=== PATIENT | male | born 1970 | race Caucasian/White ===

== ENCOUNTER 2019-05-18 15:33 | Outpatient (CLI) | payer OTHER | END 2019-05-18 15:34 | disposition critical access hospital (66) | LOC: EMS 15:33 | PROVIDERS: ATTEND Surgery | DX: R05 Cough (principal); R06.02 Shortness of breath; R50.9 Fever, unspecified | CPT/HCPCS: A0425; A0427 ==

== ENCOUNTER 2019-05-18 15:56 | Observation (INO) | payer OTHER ==
[2019-05-18] MEDS ORDERED: predniSONE 20 MG TABLET PO STA (17:19)
[2019-05-18] MEDS ORDERED: IPRATROPIUM/ALBUTEROL 3 ML NEB INH STA (17:19)
[2019-05-18] MEDS ORDERED: IBUPROFEN 800 MG TABLET PO STA (17:19)
--- NOTE | 2019-05-18 17:24 | ED Physician Documentation ---
History of Present Illness - Stated complaint Stated Complaint: FEVER - Chief complaint Chief Complaint: Fever - History obtained from History obtained from: Patient - History of Present Illness Timing: How many days ago (3) Pain level max: 5 Pain level now: 4 - Additonal information Additional information: 48-year-old male with a history of COPD states that he has had fevers and body aches for the past 3 to 4 days. Nothing makes it better or worse. Has been taking Motrin at home. Recently returned from a cruise where people were infected with influenza. Review of Systems Ten Systems: 10 systems reviewed and negative Constitutional: reports: Fever Nose: reports: Rhinorrhea / runny nose Cardiac: denies: Chest pain / pressure Respiratory: reports: Dyspnea, Cough, Wheezing GI: denies: Nausea, Vomiting, Diarrhea Skin: denies: Rash PD PAST MEDICAL HISTORY - Past Medical History Respiratory: Emphysema - Past Surgical History Past Surgical History: Yes - Present Medications Home Medications: Ambulatory Orders Medication Instructions Recorded Confirmed Albuterol 2.5 mg INH Q4H PRN 03/18/16 03/18/16 - Allergies Allergies/Adverse Reactions: Allergies Allergy/AdvReac Type Severity Reaction Status Date / Time No Known Drug Allergies Allergy Verified 05/18/19 16:03 - Social History Does the pt smoke?: Yes Smoking Status: Current every day smoker Does the pt drink ETOH?: Yes Does the pt have substance abuse?: No - Immunizations Immunizations are current?: Yes - POLST Patient has POLST: No PD ED PE NORMAL - Vitals Vital signs reviewed: Yes - General General: Alert and oriented X 3, No acute distress, Well developed/nourished - HEENT HEENT: PERRL, Ears normal, Moist mucous membranes, Pharynx benign - Neck Neck: Supple, no meningeal sign - Cardiac Cardiac: RRR - Respiratory Respiratory: No respiratory distress, Other (Diffuse wheezing bilaterally) - Abdomen Abdomen: Soft, Non tender, Non distended - Derm Derm: Warm and dry, No rash - Extremities Extremities: No edema - Neuro Neuro: Alert and oriented X 3 - Psych Psych: Normal mood, Normal affect Results - Vitals Vitals: Vital Signs - 24 hr 05/18/19 05/18/19 05/18/19 16:04 17:30 17:39 Temperature 38 C H Heart Rate 100 96 94 Respiratory 19 19 12 Rate Blood Pressure 124/90 H 115/85 H O2 Saturation 97 94 05/18/19 17:40 Temperature Heart Rate Respiratory Rate Blood Pressure O2 Saturation 94 Oxygen O2 Source Room air - Labs Labs: Laboratory Tests 05/18/19 05/18/19 05/18/19 16:30 18:20 18:20 WBC 6.3 RBC 4.73 Hgb 14.1 Hct 42.2 MCV 89.2 MCH 29.8 MCHC 33.4 RDW 13.2 Plt Count 161 MPV 10.7 Neut # (Auto) 3.9 Lymph # (Auto) 1.3 L [place] # (Auto) 0.9 Eos # (Auto) 0.0 Baso # (Auto) 0.0 Absolute Nucleated RBC 0.00 Nucleated RBC % 0.0 Sodium Potassium Chloride Carbon Dioxide Anion Gap BUN Creatinine Estimated GFR (MDRD) Glucose Lactic Acid 0.8 Calcium Total Bilirubin AST ALT Alkaline Phosphatase Total Protein Albumin Globulin Albumin/Globulin Ratio Lipase Influenza A (Rapid) POSITIVE H Influenza B (Rapid) Negative 05/18/19 18:20 WBC RBC Hgb Hct MCV MCH MCHC RDW Plt Count MPV Neut # (Auto) Lymph # (Auto) [place] # (Auto) Eos # (Auto) Baso # (Auto) Absolute Nucleated RBC Nucleated RBC % Sodium 136 Potassium 3.7 Chloride 101 Carbon Dioxide 23 Anion Gap 12.0 BUN 20 Creatinine 0.8 Estimated GFR (MDRD) 104 Glucose 94 Lactic Acid Calcium 8.5 Total Bilirubin 0.8 AST 56 H ALT 117 H Alkaline Phosphatase 38 L Total Protein 6.9 Albumin 4.2 Globulin 2.7 Albumin/Globulin Ratio 1.6 Lipase 32 Influenza A (Rapid) Influenza B (Rapid) - Rads (name of study) Chest x-ray Radiology: Prelim report reviewed, EMP read contemporaneously, See rad report (Bilateral patchy infiltrates) PD MEDICAL DECISION MAKING - ED course Complexity details: reviewed results, re-evaluated patient, considered dif ferential, d/w patient ED course: Patient appears to have influenza A complicated by pneumonia. This appears to be worsening his COPD, causing hypoxia. Given breathing treatments, steroids, antibiotics. He is out of the window for Tamiflu. He remains hypoxic. We will admit the patient for further care. Discussed the case with Dr. Cleary, hospitalist who accepts This document was made in part using voice recognition software. While efforts are made to proofread this document, sound alike and grammatical errors may occur. Departure - Departure Disposition: ED Place in Observation Clinical Impression: Influenza A, COPD exacerbation, Hypoxia Pneumonia Qualifiers: Pneumonia type: due to unspecified organism Laterality: left Lung location: lower lobe of lung Qualified Code(s): J18.9 - Pneumonia, unspecified organism Condition: Stable Discharge Date/Time: 05/18/19 19:18
--- NOTE | 2019-05-18 17:52 | XRAY Report ---
Reason: cough, fever Procedure Date: 05/18/2019 Accession Number: [id number] / [id number] Procedure: XR - Chest 1 View X-Ray CPT Code: 86283 Final Report FULL RESULT: EXAM: CHEST RADIOGRAPHY EXAM DATE: 05/18/2019 05:39 PM. CLINICAL HISTORY: Cough, fever. Cough for 3 days. COMPARISON: None. TECHNIQUE: 1 view. FINDINGS: Lungs/Pleura: Patchy infiltrate left lung base. Focal bronchiectasis right lung base. Decreased lung volume. Mediastinum: Within exam limitations, the cardiomediastinal contour is normal. Other: None. IMPRESSION: Patchy infiltrate and bronchiectasis left lung base. Possible aspiration pneumonia. RADIA
[2019-05-18] MEDS ORDERED: cefTRIAXone 1 GM VIAL IVP STA (18:00)
[2019-05-18] MEDS ORDERED: AZITHROMYCIN INJ 500 MG in SODIUM CHLORIDE 0.9% 250 ML IV STA (18:00)
[2019-05-18] MEDS ORDERED: SODIUM CHLORIDE 0.9% 1,000 ML IV ONE (18:00)
[2019-05-18] MEDS ORDERED: SODIUM CHLORIDE FLUSH 0.9% 10 ML SYRINGE IVP PRN (18:40)
[2019-05-18] MEDS ORDERED: ACETAMINOPHEN 325 MG TABLET PO PRN (18:40)
[2019-05-18] MEDS ORDERED: ONDANSETRON ODT 4 MG TABLET TL PRN (18:40)
[2019-05-18] MEDS ORDERED: ONDANSETRON 4 MG/2 ML VIAL IVP PRN (18:40)
[2019-05-18] MEDS ORDERED: oxyCODONE 5 MG TABLET PO PRN (18:40)
[2019-05-18] MEDS ORDERED: ALBUTEROL NEB 2.5 MG/3 ML INH PRN (18:42)
[2019-05-18 18:45] LABS: BASOPHILS % (AUTO) 0.3 %; EOSINOPHILS % (AUTO) 0.2 %; HGB - HEMOGLOBIN 14.1 g/dL (14.0-18.0); LYMPHOCYTES # (AUTO) 1.3 10^3/uL (1.5-3.5); LYMPHOCYTES % (AUTO) 21.2 %; MEAN CORPUSCULAR HEMOGLOBIN 29.8 pg (27.0-31.0); MEAN CORPUSCULAR HGB CONC 33.4 g/dL (32.0-36.0); MEAN CORPUSCULAR VOLUME 89.2 fL (80.0-94.0); MEAN PLATELET VOLUME 10.7 fL (7.4-11.4); MONOCYTES # (AUTO) 0.9 10^3/uL (0.0-1.0); MONOCYTES % (AUTO) 14.8 %; NEUTROPHILS # (AUTO) 3.9 10^3/uL (1.5-6.6); NEUTROPHILS % (AUTO) 62.5 %; PLT - PLATELET COUNT 161 10^3/uL (130-450); RED BLOOD COUNT 4.73 10^6/uL (4.70-6.10); RED CELL DISTRIBUTION WIDTH 13.2 % (12.0-15.0); WHITE BLOOD COUNT 6.3 x10^3/uL (4.8-10.8)
[2019-05-18 18:55] LABS: ALBUMIN 4.2 g/dL (3.2-5.5); ALBUMIN/GLOBULIN RATIO 1.6 (1.0-2.2); BILIRUBIN,TOTAL 0.8 mg/dL (0.2-1.0); CALCIUM 8.5 mg/dL (8.5-10.3); CREATININE 0.8 mg/dL (0.6-1.2); TOTAL PROTEIN 6.9 g/dL (6.7-8.2)
--- NOTE | 2019-05-18 20:11 | HISTORY & PHYSICAL EXAMINATION ---
Chief Complaint - Chief Complaint Chief Complaint: Fever History of Present Illness - Admitted From Admitted From:: Home - History Obtained From Records Reviewed: Yes History obtained from: Patient, ER Physician, EMR - History of Present Illness HPI Comment/Other: This is a 48-year-old male with a past medical history significant for COPD who presents today complaining of fever and malaise for the past 3 to 4 days. He states he was on a cruise in the [facility] which e returned home this morning. He reports the people were ill with influenza A on the cruise. He states he has felt short of breath and developed chest pain today that is reproducible. It is achy in nature and located over the central chest and is nonradiating. He has had an associated productive cough. He reports fevers, chills, malaise, body aches. He reports no rash, nausea, vomiting, abdominal pain. He does have COPD but is not on oxygen. He no longer smokes. He does use an albuterol inhaler as needed but does not use it very frequently. He reports his also has similar symptoms. He did have the influenza vaccine this year. He states that he was seen at urgent care earlier today after he arrived to [facility] at 1 PM. He states while at urgent care, he felt very lightheaded and weak and so he was referred to the emergency department. He did not pass out. In the emergency department, he is found to be febrile a temperature of 38 C. He was tachycardic with a heart rate of 100. His blood pressure was 124/90. He was not tachypneic. He was reportedly hypoxic requiring a nonrebreather and then he was placed on nasal cannula. His oxygen saturations were reportedly in the low 90s while on nasal cannula. A chest x-ray was performed which was concerning for possible pneumonia. His influenza was positive for influenza A. He did not have a white count and rest of his labs are unremarkable. Given these findings, medicine was consulted for admission History - Past Medical History Respiratory: reports: Emphysema MRSA Hx?: No - Past Surgical History General: reports: Other (Umbilical hernia.) /[employer] SURG RN: reports: Other (Vasectomy) - Family & Social History Family History Comment/Other: He reports no family history to his knowledge. Living arrangement: At home Living Situation: With spouse/s.o. Social History Notes: He has lived on [facility] for 22 years. Previous lives in [place]. He is prior the [employer]. He lives at home with his family. He does not drink alcohol and denies drug use. He no longer smokes but did smoke a pack a day for about 30 years. - Substance History Use: Uses substance without health or social issues: NONE - POLST Patient has POLST: No Meds/Allgy - Home Medications Home Medications: Ambulatory Orders Medication Instructions Recorded Confirmed Albuterol 2.5 mg INH Q4H PRN 03/18/16 03/18/16 - Allergies Allergies/Adverse Reactions: Allergies Allergy/AdvReac Type Severity Reaction Status Date / Time No Known Drug Allergies Allergy Verified 05/18/19 16:03 Review of Systems - Constitutional Constitutional: reports: Fatigue, Fever, Chills, Malaise, Weakness. denies: Poor appetite - Ears, Nose & Throat Ears, Nose & Throat: reports: Nasal congestion, Sore throat - Cardiovascular Cariovascular: reports: Chest pain, Lightheadedness, Exertional dyspnea, Decr. e xercise tolerance. denies: Edema - Respiratory Respiratory: reports: Cough, Sputum production, SOB at rest, SOB with exertion. denies: Hemoptysis - Gastrointestinal Gastrointestinal: denies: Abdominal pain, Bloody stools, Nausea, Vomiting - Musculoskeletal Musculoskeletal: reports: Muscle aches - Integumentary Integumentary: denies: Rash - Neurological Neurological: reports: General weakness. denies: Focal weakness - All Other Systems All Other Systems: reports: Reviewed and negative Prior Level of Functionality: He is independent with his ADLs. Exam - Vital Signs Reviewed Vital Signs: Yes Vital Signs: Vital Signs x48h Temp Pulse Pulse Resp BP BP Pulse Ox 05/18/19 19:33 95 11 L 112/80 93 05/18/19 19:00 92 21 109/75 91 L 05/18/19 17:40 94 05/18/19 17:39 94 12 05/18/19 17:30 96 19 115/85 H 94 05/18/19 16:04 38 C H 100 19 124/90 H 97 - Physical Exam General Appearance: positive: Alert, Mild distress Eyes Bilateral: positive: Normal inspection, Conjunctivae nml ENT: positive: ENT inspection nml Neck: positive: Nml inspection Respiratory: positive: Chest non-tender, No respiratory distress, Other ( Diminished breath sounds bilaterally.). negative: Wheezes, Rales, Rhonchi Cardiovascular: positive: No murmur, Tachycardia. negative: Bradycardia, Systolic murmur, Diastolic murmur Abdomen: positive: Non-tender, No distention. negative: Tenderness, Guarding, Rebound Skin: positive: No rash, Warm, Dry Extremities: positive: Full ROM, No pedal edema Neurologic/Psychiatric: positive: Oriented x3, Motor nml. negative: Disoriented to person, Disoriented to place, Disoriented to time Conclusion/Plan - Problem List (1) Influenza A Conclusion/Plan: Symptoms and presentation are consistent with influenza and this was confirmed with the rapid influenza testing. He does have influenza A. Chest x-ray is concerning for possible pneumonia. Fortunately he is not hypoxic. We will treat him with Tamiflu for 5 days. He also is on antibiotics for the pneumonia. Zofran as needed for antiemetics. Continue with IV hydration. Tessalon and Robitussin for cough. Diet as tolerated. (2) Pneumonia Conclusion/Plan: He does have influenza and his checks x-ray is concerning for possible pneumonia. He does not have a white count nor is he hypoxic. Suspect his fever tachycardia related to the flu rather than pneumonia at the moment. We will start him on ceftriaxone and azithromycin. If he stable overnight, will discharge on oral antibiotics to complete 5 days of treatment. Qualifiers: Pneumonia type: due to unspecified organism Laterality: left Lung location: lower lobe of lung Qualified Code(s): J18.9 - Pneumonia, unspecified organism (3) COPD (chronic obstructive pulmonary disease) Conclusion/Plan: Does not appear to be in exacerbation at the moment. His breath sounds are diminished without any wheezing. He saturating mid 90s on room air. We will continue with albuterol as needed. - Lab Results Lab results reviewed: Yes Fish Bones: 05/18/19 18:20 05/18/19 18:20 - Diagnostic Imaging Results Diagnostic Imaging Results: positive: Final report reviewed Core Measures - Anticipated LOS I expect patient to be DC'd or transferred within 96 hours.: Yes - Issues Hospital Issues and Management Plan: 48-year-old male with history of COPD who is admitted for influenza and p neumonia. He was initially hypoxic but is now on room air. We will observe overnight and treat him with antibiotics and Tamiflu. - DVT/VTE - Prophylaxis VTE/DVT Device ordered at admit?: Yes VTE/DVT Prophylaxis med ordered at admit?: No Not Ordered - Medical Reason: Not indicated
[2019-05-18] MEDS ORDERED: BENZONATATE 100 MG CAPSULE PO PRN (20:17)
[2019-05-18] MEDS: SODIUM CHLORIDE 0.9% 1,000 ML IV SCH (20:55)
[2019-05-18] MEDS: OSELTAMIVIR 75 MG CAPSULE PO SCH (20:55)
[2019-05-18] MEDS: guaiFENesin 100 MG/5 ML UDC PO PRN (20:55)
[2019-05-18] MEDS: IPRATROPIUM/ALBUTEROL 3 ML NEB INH SCH (21:10)
[2019-05-19] MEDS: SODIUM CHLORIDE FLUSH 0.9% 10 ML SYRINGE IVP SCH ×2 (03:26→09:16)
[2019-05-19] MEDS ORDERED: BENZOCAINE/MENTHOL LOZENGE MM PRN (03:47)
[2019-05-19] MEDS: guaiFENesin 100 MG/5 ML UDC PO PRN (04:06)
[2019-05-19 05:55] LABS: BASOPHILS % (AUTO) 0.2 %; HGB - HEMOGLOBIN 13.4 g/dL (14.0-18.0); LYMPHOCYTES # (AUTO) 0.9 10^3/uL (1.5-3.5); LYMPHOCYTES % (AUTO) 18.5 %; MEAN CORPUSCULAR HEMOGLOBIN 29.6 pg (27.0-31.0); MEAN CORPUSCULAR HGB CONC 32.9 g/dL (32.0-36.0); MEAN CORPUSCULAR VOLUME 89.8 fL (80.0-94.0); MEAN PLATELET VOLUME 10.3 fL (7.4-11.4); MONOCYTES # (AUTO) 0.5 10^3/uL (0.0-1.0); MONOCYTES % (AUTO) 11.6 %; NEUTROPHILS # (AUTO) 3.2 10^3/uL (1.5-6.6); NEUTROPHILS % (AUTO) 69.1 %; PLT - PLATELET COUNT 153 10^3/uL (130-450); RED BLOOD COUNT 4.53 10^6/uL (4.70-6.10); RED CELL DISTRIBUTION WIDTH 13.2 % (12.0-15.0); WHITE BLOOD COUNT 4.7 x10^3/uL (4.8-10.8)
[2019-05-19 06:02] LABS: CALCIUM 8.1 mg/dL (8.5-10.3); CREATININE 0.8 mg/dL (0.6-1.2)
[2019-05-19] MEDS: SODIUM CHLORIDE 0.9% 1,000 ML IV SCH (06:33)
[2019-05-19] MEDS: IPRATROPIUM/ALBUTEROL 3 ML NEB INH SCH ×2 (07:50→11:45)
[2019-05-19] MEDS ORDERED: SACCHAROMYCES BOULARDII 250 MG CAPSULE PO SCH (08:00)
[2019-05-19] MEDS ORDERED: cefTRIAXone 1 GM in SODIUM CHLORIDE 0.9% MINIBAG 100 ML IV SCH (09:00)
[2019-05-19] MEDS ORDERED: AZITHROMYCIN INJ 500 MG in SODIUM CHLORIDE 0.9% 250 ML IV SCH (09:00)
[2019-05-19] MEDS ORDERED: cefTRIAXone 2 GM in SODIUM CHLORIDE 0.9% MINIBAG 100 ML IV SCH (09:00)
[2019-05-19] MEDS ORDERED: guaiFENesin 600 MG TABLET PO SCH (09:00)
[2019-05-19] MEDS: OSELTAMIVIR 75 MG CAPSULE PO SCH (09:17)
[2019-05-19] MEDS ORDERED: BUDESONIDE 0.5 MG/2 ML NEB INH SCH (10:15)
--- NOTE | 2019-05-19 12:39 | Discharge Plan ---
Discharge Plan Problem Reviewed?: Yes Disposition: Home, Self Care Condition: Stable Prescriptions: Albuterol Sulfate [Proair Hfa Inhaler] 1 - 2 puffs INH Q4H PRN #1 inhaler PRN Reason: Shortness Of Air/Wheezing Cephalexin [Keflex] 250 mg PO QID #24 capsule guaiFENesin [Mucinex] 600 mg PO BID PRN #10 tablet PRN Reason: Cough Oseltamivir [Tamiflu] 75 mg PO BID #8 capsule Saccharomyces Boulardii [Florastor] 250 mg PO DAILY #6 capsule Diet: Regular Activity Restrictions: Activity as Tolerated Shower Restrictions: No (fall precaution) Instruction Topics: Oseltamivir capsules, Cephalexin tablets or capsules, Albuterol inhalation aerosol, Flu Health Concerns: Flu, and pneumonia Plan of Treatment: pt was found to have Flu, Tamiflu is prescribed for you to finish the treatment course. Antibiotics Keflex is prescribed for your pneumonia. Care Goals: stabilization and improvement of your medical conditions Assessment: discussed with you about the care plan, you understood. Additional Instructions or Follow Up instructions: you may followup your PCP in one to two weeks. Should your symptoms return or worsen, you may present ER or call 911 for help No Smoking: If you smoke, Please STOP! Call for help.
[2019-05-19 13:32] LABS: ALBUMIN 3.7 g/dL (3.2-5.5); ALBUMIN/GLOBULIN RATIO 1.3 (1.0-2.2); BILIRUBIN,TOTAL 0.4 mg/dL (0.2-1.0); CREATININE 0.9 mg/dL (0.6-1.2); TOTAL PROTEIN 6.5 g/dL (6.7-8.2)
--- NOTE | 2019-05-19 14:22 | DISCHARGE SUMMARY ---
Discharge Summary Admit Date: 05/18/19 Discharge Date: 05/19/19 Discharging Provider: Subhash Robles Condition at Discharge: Stable Discharge Disposition: 01 Home, Self Care Discharge Facility Name: home - DIAGNOSES Admission Diagnoses: (1) Influenza A (2) Pneumonia (3) COPD (chronic obstructive pulmonary disease) Discharge Diagnoses with Status of Each Condition: (1) Influenza A Improved. pt report he feel much better. pt has no more fever or chill. he ate 100% his diet. Blood culture is negative for bacteremia. pt has 96% sats on room air. pt is prescribed Tamiflu to finish the treatment course. (2) Pneumonia Improved. pt report he feel much better. pt has 96% sats on room air. pt has no more fever or chill. he ate 100% his diet. Blood culture is negative for bacteremia. pt is prescribed antibiotics Keflex to finish the treatment course (3) COPD (chronic obstructive pulmonary disease) stable. pt has no meds in home for his COPD. pt is prescribed Proair PRN - HPI History of Present Illness: This is a 48-year-old male with a past medical history significant for COPD who presents today complaining of fever and malaise for the past 3 to 4 days. He states he was on a cruise in the [facility] which hhe returned home this morning. He reports the people were ill with influenza A on the cruise. He states he has felt short of breath and developed chest pain today that is reproducible. It is achy in nature and located over the central chest and is nonradiating. He has had an associated productive cough. He reports fevers, chills, malaise, bod y aches. He reports no rash, nausea, vomiting, abdominal pain. He does have COPD but is not on oxygen. He no longer smokes. He does use an albuterol inhaler as needed but does not use it very frequently. He reports his also has similar symptoms. He did have the influenza vaccine this year. He states that he was seen at urgent care earlier today after he arrived to [facility] at 1 PM. He states while at urgent care, he felt very lightheaded and weak and so he was referred to the emergency department. He did not pass out. In the emergency department, he is found to be febrile a temperature of 38 C. He was tachycardic with a heart rate of 100. His blood pressure was 124/90. He was not tachypneic. He was reportedly hypoxic requiring a nonrebreather and then he was placed on nasal cannula. His oxygen saturations were reportedly in the low 90s while on nasal cannula. A chest x-ray was performed which was concerning for possible pneumonia. His influenza was positive for influenza A. He did not have a white count and rest of his labs are unremarkable. Given these findings, medicine was consulted for admission - HOSPITAL COURSE Hospital Course: pt was admitted for lower degree fever, cough, and once hypoxia. pt was found to have influenza A and possible pneumonia in CXR. pt was treated with Tamiflu and antibiotics. after treatment, he feel much better, he has 96% sat on room air, he has no more fever, or chill, blood culture is negative for bacteremia. pt is prescribed antibiotics and Tamiful for d/c. The detail hospital course is as the following. (1) Influenza A Improved. pt report he feel much better. pt has no more fever or chill. he ate 100% his diet. Blood culture is negative for bacteremia. pt has 96% sats on room air. pt is prescribed Tamiflu to finish the treatment course. (2) Pneumonia Improved. pt report he feel much better. pt has 96% sats on room air. pt has no more fever or chill. he ate 100% his diet. Blood culture is negative for bact eremia. pt is prescribed antibiotics Keflex to finish the treatment course (3) COPD (chronic obstructive pulmonary disease) stable. pt has no meds in home for his COPD. pt is prescribed Proair PRN - ALLERGIES Allergies/Adverse Reactions: Allergies Allergy/AdvReac Type Severity Reaction Status Date / Time No Known Drug Allergies Allergy Verified 05/18/19 16:03 - MEDICATIONS Home Medications: Ambulatory Orders Medication Instructions Recorded Confirmed Albuterol Sulfate [Proair Hfa 1 - 2 puffs INH Q4H PRN #1 inhaler 05/19/19 Inhaler] Cephalexin [Keflex] 250 mg PO QID #24 capsule 05/19/19 Oseltamivir [Tamiflu] 75 mg PO BID #8 capsule 05/19/19 Saccharomyces Boulardii [Florastor] 250 mg PO DAILY #6 capsule 05/19/19 guaiFENesin [Mucinex] 600 mg PO BID PRN #10 tablet 05/19/19 - PHYSICAL EXAM AT DISCHARGE General Appearance: positive: No acute distress, Alert. negative: Lethargic Eyes Bilateral: positive: Normal inspection, PERRL, EOMI, No lid inflammation ENT: positive: ENT inspection nml, Pharynx nml, No signs of dehydration. negative: Purulent nasal drainage Neck: positive: Nml inspection, Thyroid nml, No JVD, Trachea midline. negative: Thyromegaly, Lymphadenopathy (R), Stiff neck, Tracheal deviation Respiratory: positive: Chest non-tender, No respiratory distress, Breath sounds nml. negative: Wheezes, Rales, Rhonchi Cardiovascular: positive: Regular rate & rhythm, No murmur, No gallop. negative: Irregularly irregular, Extrasystoles, Tachycardia, Bradycardia, JVD pr esent, Systolic murmur, Diastolic murmur Peripheral Pulses: positive: 2+ Abdomen: positive: Non-tender, No organomegaly, Nml bowel sounds, No distention. negative: Tenderness, Guarding, Rebound Back: positive: Nml inspection. negative: CVA tenderness (R), CVA tenderness (L) Skin: positive: Color nml, No rash, Warm, Dry. negative: Cyanosis, Diaphoresis, Pallor Extremities: positive: Non-tender, Full ROM, Nml appearance. negative: Calf tenderness, Simon's sign/cords Neurologic/Psychiatric: positive: Oriented x3, Motor nml, Sensation nml, Mood /affect nml. negative: Weakness, Sensory loss, Facial droop, Slurred/abnml speech, Depressed mood/affect - LABS Result Diagrams: 05/19/19 05:40 05/19/19 13:00 - FOLLOW UP Follow Up: pt was found to have Flu, Tamiflu is prescribed for you to finish the treatment course. Antibiotics Keflex is prescribed for your pneumonia. you may followup your PCP in one to two weeks. Should your symptoms return or worsen, you may present ER or call 911 for help - TIME SPENT Time Spent in Discharge (Minutes): 35
[2019-05-19] MEDS ORDERED: POTASSIUM CHLORIDE 20 MEQ TABLET PO ONE (15:00)
[2019-05-19 15:51] VITALS: BP 118/73
== END 2019-05-19 16:00 | disposition home or self-care (01) ==
LOC: EDUNIT# → ED 15:56 → INTOOBSV 18:40 → MS2 18:40
PROVIDERS: ADMIT Internal Medicine; ATTEND Nurse Practitioner Gerontology
DX: J10.00 Influenza due to other identified influenza virus with unspecified type of pneumonia (principal); J43.9 Emphysema, unspecified; R09.02 Hypoxemia; Z79.899 Other long term (current) drug therapy; Z87.891 Personal history of nicotine dependence
CPT/HCPCS: 36415; 71045; 80048; 80053; 83605; 83690; 85025; 87040; 87275; 87276; 94640; 96361; 96365; 96366; 96367; 96375; 99285; A9270; G0378; J7512; J7626

== ENCOUNTER 2019-06-04 14:43 | Outpatient (CLI) | payer OTHER ==
--- NOTE | 2019-06-05 11:35 | XRAY Report ---
Reason: BRONCHITIS Procedure Date: 06/04/2019 Accession Number: [id number] / [id number] Procedure: WCP - Chest 2 View X-Ray CPT Code: 12446 Final Report FULL RESULT: EXAM: CHEST RADIOGRAPHY EXAM DATE: 06/04/2019 02:43 PM. CLINICAL HISTORY: BRONCHITIS. COMPARISON: CHEST 1 VIEW 05/18/2019 5:23 PM. TECHNIQUE: 2 views. FINDINGS: Lungs/Pleura: No focal opacities evident. No pleural effusion. No pneumothorax. Normal volumes. Mediastinum: Heart and mediastinal contours are unremarkable. Other: None. IMPRESSION: 1. Normal 2-view chest radiography. 2. Lung volumes have improved and prior left basilar airspace disease has resolved. RADIA
== END 2019-06-04 23:59 | disposition home or self-care (01) ==
LOC: DI.WCP 14:43
PROVIDERS: ATTEND Family Medicine
DX: J20.9 Acute bronchitis, unspecified (principal)
CPT/HCPCS: 71046

== ENCOUNTER 2021-01-15 17:01 | Emergency (ER) | payer OTHER ==
[2021-01-15 17:08] VITALS: BP 138/70
[2021-01-15] MEDS ORDERED: BACITRACIN ZINC OINT 1 PACKET TOP STA (17:11)
[2021-01-15] MEDS ORDERED: BUFFERED LIDOCAINE 10 ML SYRINGE SUBQ STA (17:11)
--- NOTE | 2021-01-15 17:25 | ED Physician Documentation ---
History of Present Illness - Stated complaint Stated Complaint: LT HAND LAC - Chief complaint Chief Complaint: Laceration - Additonal information Additional information: 50-year-old male presents emergency department for evaluation of a laceration at the base of his left thumb dorsum hand. Sustained when using sharp knife at home. Tetanus is up-to-date. 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) - Present Medications Home Medications: Ambulatory Orders Medication Instructions Recorded Confirmed Albuterol Sulfate [Proair Hfa 1 - 2 puffs INH Q4H PRN #1 inhaler 05/19/19 Inhaler] Oseltamivir [Tamiflu] 75 mg PO BID #8 capsule 05/19/19 Saccharomyces Boulardii [Florastor] 250 mg PO DAILY #6 capsule 05/19/19 cephALEXin [Keflex] 250 mg PO QID #24 capsule 05/19/19 guaiFENesin [Mucinex] 600 mg PO BID PRN #10 tablet 05/19/19 - Allergies Allergies/Adverse Reactions: Allergies Allergy/AdvReac Type Severity Reaction Status Date / Time No Known Drug Allergies Allergy Verified 05/18/19 16:03 - Social History Does the pt smoke?: Yes Smoking Status: Current every day smoker Does the pt drink ETOH?: Yes Does the pt have substance abuse?: No - Immunizations Immunizations are current?: Yes - POLST Patient has POLST: No PD ED PE EXPANDED - General General: Alert, No acute distress - Extremities Extremities: Left finger(s) (2 cm laceration dorsum left thumb at base above mcp. normal flexion/extension. distal sensation intact) Results - Vitals Vitals: Vital Signs - 24 hr 01/15/21 17:06 Temperature 36.9 C Heart Rate 88 Respiratory 19 Rate Blood Pressure 138/70 H O2 Saturation 96 Oxygen O2 Source Room air Procedures - Laceration (location) left thumb Length in cm: 2 Wound type: Linear, Into subcut fat Neurovascular status: Sensory intact, Motor intact Tendon involvement: Tendon intact Anesthesia: Lidocaine 1% Wound preparation: Hibiclens, Irrigated copiously NS Skin layer closure: Interrupted, Size #-0 - enter number (4), Sutures - enter # (2) Other: Patient tolerated well, No complications, Neurovascular intact, Tetanus UTD PD MEDICAL DECISION MAKING - ED course Complexity details: d/w patient ED course: 50-year-old male presents emergency department for evaluation of a laceration on the dorsum of his left thumb just above the MCP. Tetanus is up-to-date. No evidence of neurovascular compromise or tendon injury. Wound easily closed with 2 sutures. Routine wound care emergent return precautions were discussed. Departure - Departure Disposition: 01 Home, Self Care Clinical Impression: Laceration of left thumb Qualifiers: Encounter type: initial encounter Damage to nail status: without damage Foreign body presence: without foreign body Qualified Code(s): S61.012A - Laceration without foreign body of left thumb without damage to nail, initial encounter Condition: Stable Record reviewed to determine appropriate education?: Yes Instructions: ED Laceration All Comments: Your sutures (2) should be removed in 7 days. In 24 hours you may remove the dressing wash gently with warm soap and water, apply any antibiotic ointment and a simple bandage. Your tetanus is up-to-date. Please attempt to keep your wound clean and dry. Do not submerge it in dirty dishwater or bath water. Return to the emergency department if you have any concerns of infection such as redness, fevers milky drainage increased pain.
== END 2021-01-15 17:36 | disposition home or self-care (01) ==
LOC: ED 17:01
DX: S61.012A Laceration without foreign body of left thumb without damage to nail, initial encounter (principal); W26.0XXA Contact with knife, initial encounter; Y93.89 Activity, other specified; Y92.009 Unspecified place in unspecified non-institutional (private) residence as the place of occurrence of the external cause; F17.200 Nicotine dependence, unspecified, uncomplicated
CPT/HCPCS: 12001; 99282; A9270

== ENCOUNTER 2021-04-10 08:00 | Outpatient (CLI) | payer OTHER ==
[2021-04-10 20:57] LABS: BILIRUBIN,URINE NEGATIVE (NEGATIVE); GLUCOSE, URINE (UA) NEGATIVE (NEGATIVE); KETONES,URINE (UA) NEGATIVE (NEGATIVE); LEUKOCYTE ESTERASE, URINE NEGATIVE (NEGATIVE); NITRITE,URINE NEGATIVE (NEGATIVE); OCCULT BLOOD,URINE NEGATIVE (NEGATIVE); PROTEIN,URINE NEGATIVE (NEGATIVE); UROBILINOGEN,URINE 0.2 (NORMAL) E.U./dL (NORMAL)
[2021-04-10 21:00] LABS: BASOPHILS % (AUTO) 0.9 %; EOSINOPHILS % (AUTO) 1.1 %; HGB - HEMOGLOBIN 15.6 g/dL (14.0-18.0); MEAN CORPUSCULAR HEMOGLOBIN 30.2 pg (27.0-31.0); MEAN CORPUSCULAR HGB CONC 34.7 g/dL (32.0-36.0); MEAN CORPUSCULAR VOLUME 87.2 fL (80.0-94.0); MEAN PLATELET VOLUME 10.9 fL (7.4-11.4); MONOCYTES % (AUTO) 6.7 %; NEUTROPHILS % (AUTO) 59.4 %; PLT - PLATELET COUNT 280 10^3/uL (130-450); RED BLOOD COUNT 5.16 10^6/uL (4.70-6.10); RED CELL DISTRIBUTION WIDTH 12.7 % (12.0-15.0); WHITE BLOOD COUNT 16.2 x10^3/uL (4.8-10.8)
[2021-04-10 21:08] LABS: ALBUMIN 4.8 g/dL (3.2-5.5); ALKALINE PHOSPHATASE 49 IU/L (42-121); ALT ALANINE AMINOTRANSFERASE 78 IU/L (10-60); AST ASPARTATE AMINOTRANSFERASE 44 IU/L (10-42); BILIRUBIN,TOTAL 0.8 mg/dL (0.2-1.0); BUN - BLOOD UREA NITROGEN 16 mg/dL (6-20); CALCIUM 9.7 mg/dL (8.5-10.3); CARBON DIOXIDE - CO2 28 mmol/L (21-32); CHLORIDE 98 mmol/L (101-111); CHOL/HDL RATIO 3.9 (<5.0); CHOLESTEROL 201 mg/dL; CREATININE 0.8 mg/dL (0.6-1.2); GFR - MDRD 103 (>89); GLUCOSE 78 mg/dL (70-100); HDL CHOLESTEROL 51 mg/dL; LDL CHOLESTEROL,CALCULATED 101 mg/dL; POTASSIUM 3.9 mmol/L (3.5-5.0); SODIUM 138 mmol/L (135-145); TOTAL PROTEIN 7.2 g/dL (6.7-8.2); TRIGLYCERIDES 244 mg/dL; VLDL CHOLESTEROL 49 mg/dL
[2021-04-10 21:18] LABS: THYROID STIMULATING HORMONE 5.86 uIU/mL (0.34-5.60)
[2021-04-10 21:43] LABS: ABNORMAL LYMPHS % (MANUAL) 0 %; BAND NEUTROPHILS % (MANUAL) 0 %
[2021-04-10 22:00] LABS: BACTERIA,URINE None Seen /HPF (None Seen); CLARITY,URINE CLEAR (CLEAR); RBC,URINE 0-5 /HPF (0-5); SQUAMOUS EPITHELIAL CELL,UR NONE SEEN (<= Few); WBC,URINE 0-3 /HPF (0-3)
[2021-04-10 23:02] LABS: DIFFERENTIAL COMMENT MANUAL DIFFERENTIAL; EOSINOPHILS # (MANUAL) 0.3 10^3/uL (0-0.7); LYMPHOCYTES # (MANUAL) 4.1 10^3/uL (1.5-3.5); LYMPHOCYTES % (MANUAL) 16 %; MONOCYTES # (MANUAL) 2.6 10^3/uL (0.0-1.0); NEUTROPHILS # (MANUAL) 9.2 10^3/uL (1.5-6.6); PLATELET ESTIMATE, MANUAL NORMAL (130-450,000) (NORMAL); RBC MORPHOLOGY (MULTIPLE) NORMAL APPEARANCE (NORMAL); REACTIVE LYMPHS % (MANUAL) 9 %
[2021-04-10 23:31] LABS: FREE T4 (FREE THYROXINE) 0.91 ng/dL (0.58-1.64)
== END 2021-04-10 23:59 ==
LOC: LAB 08:00
PROVIDERS: ATTEND Nurse Practitioner
DX: J44.1 Chronic obstructive pulmonary disease with (acute) exacerbation (principal); R53.83 Other fatigue
CPT/HCPCS: 36415; 80053; 80061; 81001; 83721; 84439; 84443; 85025; 87086

== ENCOUNTER 2021-05-26 13:03 | Outpatient (CLI) | payer OTHER ==
[2021-05-26 13:37] VITALS: BP 102/75
--- NOTE | 2021-05-26 13:37 | SLEEP CARE CONSULTATION ---
Information from patient questionnaire entered by Buster Cárdenas MA. I have reviewed and concur with the information entered by Buster Cárdenas MA. This document represents the service I personally performed and the decisions made by , Daksha Hatch ARNP. History of Present Illness Service Date and Time: 05/26/2021 1303 Reason for Visit: New patient (Onset 04/1997, NO PRIORS) Chief Complaint: reports: Unrefreshed sleep, Snoring, Excessive daytime sleepiness, Observed pauses in breathing, Fatigue, Frequent awakenings at night Date of Onset: 15 years Usual bedtime: 1999 Time it takes to fall asleep: 15-60 minutes Snores at night: Yes Observed to quit breathing while asleep: Yes Sleeps alone due to snoring: No Number of times waking at night: 2-3 Reasons for waking at night: reports: Snoring, Gasping for air Toss, Turn, or Twitch while sleeping: No Recalls having dreams: No Usually gets out of bed at: 0430 Feels refreshed in the morning: No Morning headache: No Sleepy or fatigued during the day: Yes Ever fallen asleep while driving: No Takes day naps: Yes Dreams during day naps: No Prior sleep studies: No Additional HPI information: I had the pleasure of seeing SHANNAN DEL CASTILLO today regarding the possibility of him having a sleep disorder. His current complaints are excessive daytime sleepiness, fatigue, frequent night awakenings, observed pauses in breathing, snoring and unrefreshed sleep. He feels tired all day long. The patient tells me that he normally goes to bed around 8 pm, and it takes him approximately 15-60 minutes to fall asleep. He has been told that he snores loudly and irregularly at night. He has been observed to stop breathing in his sleep. His bed partner can still sleep in the same bed as long as she is tired enough to sleep. He can recall waking up on the average of 2-3 times during the night. Most of the time he wakes up because of unknown reasons. He has occasionally awakened for his own snoring, coughing, and having to gasp for air. There is not a lot of tossing and turning in his sleep. Generally there is no recollection of dreams. He usually wakes up at 0430 on weekdays, 6-7 am on weekends and does not feel refreshed. He usually does not have a morning headache. During the day he complains of feeling sleepy and fatigued. He has never fallen asleep while driving nor has any accident due to sleepiness. He usually naps for about 60 minutes during the day about 3-4 times on weekends mostly. If he naps, upon falling asleep during the day he denies having vivid dreams. There is somniloquy (sleep talking) but no somnambulism (sleep walking). He has never experienced sleep paralysis, cataplexy, or symptoms of restless leg syndrome. He reports having impaired concentration during the day. 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 Patient is and lives in [place]. Have you smoked in the past 12 months: No Cigarettes per day (20/pack): 10 Years of smokin Quit date: 2013 Smoking Pack Years: 9.0 Alcohol use: Yes Alcohol amount and frequency: 1 beer, 1-2 times a week Caffeine use: Yes Caffeine amount and frequency: about 5 cups a day Family History Family history of sleep disordered breathing: Yes Family Hx Sleep Apnea: Mother: Snoring (son), Sleep apnea - Untreated (just taken off), Father: Snoring, Other: Snoring, Sleep apnea - Treated Allergies and Home Medications Drug allergies reviewed: Yes (NKDA) Home medication list reviewed: Yes Allergy and home medication list: Allergies No Known Drug Allergies Allergy (Verified 05/18/19 16:03) Medication: Trelegy inhaler Albuterol inhaler Review of Systems Weight gain over past 5 years: 15 Respiratory: reports: shortness of breath, wheeze Ear/Nose/Throat: reports: wisdom teeth removed. denies: tonsillectomy Musculoskeletal: reports: back pain Immunologic: denies: allergies to food or environment Physical Exam Vital signs obtained and entered by: SELIN AMEZCUA Blood Pressure: 102/75 Cuff size: wrist Heart Rate: 89 O2 Saturation: 95 Height: 5 ft 9 in Weight: 165 lb Body Mass Index: 24.3 BMI Classification: Healthy weight Neck circumference: 15 (inches) Mouth and throat: narrow oropharynx Soft palate: long Hard palate: normal Uvula: normal Uvula visualization: 50% Mallampati Class II Tongue: enlarged in size with teeth young on lateral edges Tonsils: small Neck: normal w/o lymphadenopathy or thyromegaly Heart: regular rate and rhythm Lungs: clear bilaterally Impression and Plan 1. Suspected Obstructive Sleep Apnea-Hypopnea Syndrome, as suggested by a history of loud and irregular snoring, observed cessation of breath while asleep, gasping or choking in sleep, frequent awakening during the night, unrefreshed sleep, cognitive impairment, and excessive daytime sleepiness. Narrow oropharynx and obesity are common predisposing factors for obstructive sleep apnea-hypopnea syndrome. I recommend proceeding to polysomnography to confirm the diagnosis and to assess severity. If the patient has significant sleep disordered breathing, a manual CPAP titration study will also be performed to find the optimal treatment pressure. I informed the patient of what the sleep studies involve and after some discussion, obtained agreement to proceed. The pathophysiology of obstructive sleep apnea-hypopnea syndrome was discussed with the patient and health risks of cardiovascular and cerebrovascular disease if not treated. Risks of drowsy driving discussed in detail and patient advised to avoid long distance driving and to plant puller at the first sign of drowsiness. Patient agreed to plan. * Schedule polysomnography * Avoid long distance driving or driving when feeling sleepy. * Avoid alcohol, sedative and muscle relaxant around bedtime. * Attempt to lose weight. * Review instructions provided by trained office staff on how to prepare for the sleep study. * Return for follow-up after sleep study completed. Counseling Topics: Weight control Visit Type: In Office Time Spent with Patient (minutes): 30 Provider Statement: I spent 100% of the Face to Face Visit with the patient with greater than 50% spent counseling the patient and coordination of care.
== END 2021-05-26 13:04 | disposition home or self-care (01) ==
LOC: SC 13:03
PROVIDERS: ATTEND Nurse Practitioner Family
DX: R06.83 Snoring (principal); R06.81 Apnea, not elsewhere classified; R41.89 Other symptoms and signs involving cognitive functions and awareness; G47.10 Hypersomnia, unspecified; G47.8 Other sleep disorders
CPT/HCPCS: 99203; 99212

== ENCOUNTER 2021-06-25 19:31 | Outpatient (CLI) | payer OTHER | END 2021-06-25 19:32 | disposition home or self-care (01) | LOC: SC 19:31 | PROVIDERS: ATTEND Nurse Practitioner Family | DX: G47.33 Obstructive sleep apnea (adult) (pediatric) (principal) | CPT/HCPCS: 95810 ==

== ENCOUNTER 2021-07-11 16:21 | Outpatient (CLI) | payer OTHER ==
[2021-07-11 17:03] VITALS: BP 126/93
--- NOTE | 2021-07-11 17:03 | SLEEP CARE CONSULTATION ---
Information from patient questionnaire entered by Buster Cárdenas MA. I have reviewed and concur with the information entered by Buster Cárdenas MA. This document represents the service I personally performed and the decisions made by , Daksha Hatch ARNP. History of Present Illness Service Date and Time: 07/11/2021 1621 Initial [place] Sleepiness Scale score: 14 Current [place] Sleepiness Scale score: 16 Additional HPI information: SHANNAN DEL CASTILLO returns for follow up and results of the recently performed polysomnography. I explained the pathophysiology behind obstructive sleep apnea. We then spent quite a bit of time discussing different treatment options. For mild obstructive sleep apnea, surgery and oral appliance are alternatives to nasal CPAP therapy but in moderate or severe cases, nasal CPAP is the most effective and reliable treatment. Because apnea is primarily in supine position, then positional management therapy could be effective. Methods discussed such as positioning with pillows, using a T-shirt with tennis balls in the back, and shown commercial products that have a pillow format on back to prevent supine sleep. I reviewed the impact of weight changes on sleep apnea. After some discussion, the patient opted to go with the nasal CPAP therapy. Nasal autoCPAP set at 4-15 cmH20 will be ordered with rationale explained. A manual titration study will be ordered if unable to find optimal pressure with office adjustments. I explained how CPAP machine works and what to expect when using the machine. Using CPAP every night in order to get used to it was emphasized. Patient advised to put CPAP mask on before getting into bed so as not to fall asleep without CPAP. To assist acclimation to CPAP use, it could also be used for a short time during day while reading or watching TV. The patient was instructed to call the CPAP supplier to discuss any mechanical problem that may occur. If the mask given is uncomfortable or is difficult to keep on through the night even with adjustment, contact the CPAP supplier as many will replace with another mask style if notified before 30 days. If snoring or perceives is not getting enough air or too much air from the machine, notify this office. AASM patient education PAP tips reviewed and given to patient. Patient does not drink alcohol. Patient was cautioned about risks of drowsy driving until sleepiness symptoms resolve. Patient denies drowsy driving. Sleep Study - Results Type of Sleep Study: Polysomnography (F/U POLY, 06/25/21 [facility],) Prior sleep studies: No Polysomnography/Home Sleep Study results: IMPRESSION: The quality of the study is good. The patient had reduced sleep efficiency due to sleep onset insomnia and a prolonged awakening near the end of the study. The sleep architecture was abnormal for sleep fragmentation and reduced amount of time spent in REM and slow wave sleep (N3). Respiratory monitoring showed mild obstructive sleep apnea-hypopnea (AHI = 14.9) associated with frequent arousals, oxyhemoglobin desaturation and mild hypoxia (merna oxygen saturation of 85%). The respiratory events occur red almost exclusively during supine sleep (supine AHI = 23.4; non-supine = 1.01). Snore was moderate to loud in intensity. There was no significant periodic leg movement of sleep. Cardiac rhythm was normal sinus rhythm without significant arrhythmia. No abnormal behavior (parasomnia) observed during the night. Allergies and Home Medications Home medication list reviewed: Yes (no changes) Allergy and home medication list: Allergies No Known Drug Allergies Allergy (Verified 05/18/19 16:03) Review of Systems Review of systems same as previous: Yes (no changes) Physical Exam Vital signs obtained and entered by: SELIN AMEZCUA Blood Pressure: 126/93 (RR 16) Cuff size: wrist Heart Rate: 86 O2 Saturation: 97 Height: 5 ft 9 in Weight: 165 lb Body Mass Index: 24.3 BMI Classification: Healthy weight Impression and Plan 1. Obstructive Sleep Apnea-Hypopnea Syndrome, mild, with lowest oxygen saturation of 85%. Obviously this is the cause of the patients symptoms of unrefreshed sleep, and excessive daytime sleepiness. Positive pressure therapy could benefit asthma and COPD. As mentioned above, the patient will be started on nasal autoCPAP therapy with pressure set at 4-15 cmH2O. Compliance guidelines also reviewed. A copy of compliance guidelines will be given for reference at check out. Because the apnea is more severe supine, I instructed to avoid sleeping supine using pillow positioning until able to start CPAP use. * Nasal auto CPAP therapy, pressure at 4-15 cm H2O. * Attempt to lose weight. * Avoid alcohol consumption near bedtime. * Avoid supine sleep until using CPAP. * The patient is again cautioned about driving until sleepiness completely resolves. * Return one month after CPAP obtained. I will assess response to therapy and compliance at that time. Counseling Topics: Weight control Visit Type: In Office Time Spent with Patient (minutes): 14 Provider Statement: I spent 100% of the Face to Face Visit with the patient with greater than 50% spent counseling the patient and coordination of care.
== END 2021-07-11 16:22 | disposition home or self-care (01) ==
LOC: SC 16:21
PROVIDERS: ATTEND Nurse Practitioner Family
DX: G47.33 Obstructive sleep apnea (adult) (pediatric) (principal)
CPT/HCPCS: 99212; 99213

== ENCOUNTER 2021-09-15 10:18 | Outpatient (CLI) | payer OTHER ==
[2021-09-15 11:08] VITALS: BP 149/88
--- NOTE | 2021-09-15 11:08 | SLEEP CARE CONSULTATION ---
Information from patient questionnaire entered by Buster Cárdenas MA. I have reviewed and concur with the information entered by Buster Cárdenas MA. This document represents the service I personally performed and the decisions made by , Daksha Hatch ARNP. History of Present Illness Service Date and Time: 09/15/2021 1018 Previous diagnosis: Mild, Obstructive Sleep Apnea-Hypopnea Syndrome AHI: 14.9 (in 2021) Reason for follow up: first compliance (CHRIS PADILLA 08/04/2021, ) Equipment type: CPAP Equipment obtained from: Other ([facility]; got initial supplies) Mask style: Nasal Mask brand: Respironics (Dreamwer) Backup mask available: Yes (other mask) Last cushion change: 3-4 weeks Prior sleep studies: No Type of Sleep Study: Polysomnography (F/U POLY, 06/25/21 [facility],) HPI additional information: SHANNAN DEL CASTILLO was diagnosed to have mild, AHI 14.9, obstructive sleep apnea- hypopnea syndrome and returned today for CPAP therapy first compliance follow- up. Sleep Study - Results Type of Sleep Study: Polysomnography (F/U POLY, 06/25/21 [facility],) Prior sleep studies: No CPAP Compliance Data - Data Reviewed with Patient Average duration of nightly device use: 7 HOURS 9 MINUTES Compliance rate %: 100 (08/15/2021-09/13/2021; 30/30 days) Current pressure setting (cmH2O): 4-15 (avg 10.6, max 11.9) Average residual AHI: 2.8 Central apnea: 1.0 Obstructive apnea: .8 Hypopnea: .9 Average large leak: 16.5 Subjective Patient concerns: denies: aerophagia, mask discomfort, air blowing in eyes, mask leak noise, condensation in mask/hose, nasal congestion, dry mouth, nose, throat, epistaxis, other Observed to snore while using device: No Current pressure setting perceived as: comfortable On therapy, patient: reports: sleeping better, awakening more refreshed, being more awake and alert during the day, more rested overall. denies: drowsiness while driving Initial [place] Sleepiness Scale score: 14 Current [place] Sleepiness Scale score: 12 (09/15/2021) Allergies and Home Medications Known drug allergies: No Drug allergies reviewed: Yes Home medication list reviewed: Yes (no changes) Allergy and home medication list: Allergies No Known Drug Allergies Allergy (Verified 05/18/19 16:03) Review of Systems Review of systems same as previous: Yes (no changes) Physical Exam Vital signs obtained and entered by: SELIN AMEZCUA Blood Pressure: 149/88 (RESP 18, PULSE 83, LEFT ) Cuff size: wrist Heart Rate: 74 O2 Saturation: 98 (CLOTH) Height: 5 ft 9 in Weight: 172 lb (W CLOTHES) Body Mass Index: 25.4 BMI Classification: Overweight Impression and Plan 1. Obstructive Sleep Apnea-Hypopnea Syndrome, mild, with excellent treatment compliance and good apnea control. On CPAP therapy, the patient has better sleep quality and is more rested overall. Patient started with a fullface mask but this was making sore spots on his upper lip over his canine teeth roots. He purchased a nasal cushion, Revalesioar. He really likes this one, states it is comfortable and has been using it for the last 3 to 4 weeks. Patient is really happy with current APAP settings, so no changes will be made today as he has good apnea control. He states he is not snoring when using the CPAP and his is really happy and able to sleep better in the same room. Patient's apnea severity and rationale for treatment to reduce apnea, improve sleep quality and reduce cardiovascular and cerebrovascular events was reviewed. I also reviewed the benefit of consistent device use of CPAP for asthma and COPD. * Continue auto CPAP pressure at 4-15 cmH2O * Notify me if snoring with mask or feeling that the pressure is too much or too little * Attempt to lose weight * Call this office if any problems using CPAP * Return for follow up in 3 months, or sooner if concerns arise Counseling Topics: Spare mask Visit Type: In Office Time Spent with Patient (minutes): 16 Provider Statement: I spent 100% of the Face to Face Visit with the patient with greater than 50% spent counseling the patient and coordination of care.
== END 2021-09-15 10:19 | disposition home or self-care (01) ==
LOC: SC 10:18
PROVIDERS: ATTEND Nurse Practitioner Family
DX: G47.33 Obstructive sleep apnea (adult) (pediatric) (principal)
CPT/HCPCS: 99212

== ENCOUNTER 2021-12-08 08:18 | Outpatient (CLI) | payer OTHER ==
[2021-12-08 08:49] VITALS: BP 108/64
--- NOTE | 2021-12-08 08:49 | SLEEP CARE CONSULTATION ---
Information from patient questionnaire entered by Chelly Lenz. I have reviewed and concur with the information entered by Chelly Lenz. This document represents the service I personally performed and the decisions made by , Daksha Hatch ARNP. History of Present Illness Service Date and Time: 12/08/2021817 Previous diagnosis: Mild, Obstructive Sleep Apnea-Hypopnea Syndrome AHI: 14.9 Reason for follow up: three month (3 MONTH F/U RESMED) Equipment type: CPAP Equipment obtained from: Other ([facility]; getting supplies as needed, some sizes not correct) Mask style: Nasal Mask brand: Respironics (Dreamwear) Backup mask available: Yes (old mask) Last cushion change: 1 month Prior sleep studies: No Type of Sleep Study: Polysomnography (F/U POLY, 06/25/21 [facility],) HPI additional information: SHANNAN DEL CASTILLO was diagnosed to have mild, AHI 14.9, obstructive sleep apnea- hypopnea syndrome and returned today for CPAP therapy three month follow-up. Sleep Study - Results Type of Sleep Study: Polysomnography (F/U POLY, 06/25/21 [facility],) Prior sleep studies: No CPAP Compliance Data - Data Reviewed with Patient Average duration of nightly device use: 7 hrs 54 mins Compliance rate %: 100 (90/90 days) Current pressure setting (cmH2O): 4-15 Average residual AHI: 1.9 Average large leak: 1.7 L/min Subjective Patient concerns: denies: aerophagia, mask discomfort, air blowing in eyes, mask leak noise, condensation in mask/hose, nasal congestion, dry mouth, nose, throat, epistaxis, other Observed to snore while using device: No Current pressure setting perceived as: comfortable On therapy, patient: reports: sleeping better, awakening more refreshed, being more awake and alert during the day, more rested overall. denies: drowsiness while driving Initial [place] Sleepiness Scale score: 14 Current [place] Sleepiness Scale score: 9 (12/08/21) Allergies and Home Medications Home medication list reviewed: Yes (no changes) Review of Systems Review of systems same as previous: Yes (no changes) Physical Exam Vital signs obtained and entered by: SARAHI, FARM AGENT Blood Pressure: 108/64 (LEFT ARM ) Heart Rate: 80 O2 Saturation: 94 Height: 5 ft 9 in Weight: 181 lb Body Mass Index: 26.7 BMI Classification: Overweight Impression and Plan 1. Obstructive Sleep Apnea-Hypopnea Syndrome, mild, with good treatment compliance and good apnea control. On CPAP therapy, the patient has better sleep quality and is more rested overall. Patient has significant improvement of his sleep apnea and is satisfied with current CPAP therapy. Patient denies problems with oral dryness, nasal congestion, epistaxis, skin irritation or aerophagia. He states he got supplies but they were not the right size from his DME. He states he is using them and it is working okay anyway. Patient's apnea severity and rationale for treatment to reduce apnea, improve sleep quality and reduce cardiovascular and cerebrovascular events was reviewed. I also reviewed the benefit of consistent device use of CPAP for asthma/COPD. His BMI is 26.7 which is overweight and he was encouraged to lose weight. * Continue auto CPAP pressure at 4-15 cmH2O * Notify me if snoring with mask or feeling that the pressure is too much or too little * Attempt to lose weight * Call this office if any problems using CPAP * Return for follow up in 1 year, or sooner if concerns arise Counseling Topics: Spare mask, Weight loss health impact Visit Type: In Office Time Spent with Patient (minutes): 20 Provider Statement: I spent 100% of the Face to Face Visit with the patient with greater than 50% spent counseling the patient and coordination of care.
== END 2021-12-08 08:19 | disposition home or self-care (01) ==
LOC: SC 08:18
PROVIDERS: ATTEND Nurse Practitioner Family
DX: G47.33 Obstructive sleep apnea (adult) (pediatric) (principal); E66.3 Overweight; Z68.27 Body mass index [BMI] 27.0-27.9, adult
CPT/HCPCS: 99212; 99213